=== PATIENT | male | born 1975 | race Caucasian/White ===

== ENCOUNTER 2019-01-10 09:51 | Emergency (ER) | payer SELFPAY ==
[~2019-01-10] VITALS: Ht 170.2 cm; Wt 82.0 kg
[2019-01-10] MEDS ORDERED: HYDROCODONE/ACETAMINOPHEN 5/325MG TABLET PO ONE (11:15)
[2019-01-10] MEDS ORDERED: BACITRACIN ZINC OINT UDPKT TOP ONE (12:15)
[2019-01-10 12:52] VITALS: BP 119/72
== END 2019-01-10 13:32 | disposition home or self-care (01) ==
LOC: ER 09:51
DX: S61.313A Laceration without foreign body of left middle finger with damage to nail, initial encounter (principal); W45.8XXA Other foreign body or object entering through skin, initial encounter; Y93.89 Activity, other specified; Y92.89 Other specified places as the place of occurrence of the external cause; Y99.0 Civilian activity done for income or pay
CPT/HCPCS: 73140; 99283